=== PATIENT | female | born 1955 | race Asian ===

== ENCOUNTER 2024-01-20 16:39 | Emergency (ER) | payer MEDICARE, OTHER ==
[~2024-01-20] VITALS: Ht 149.9 cm; Wt 55.5 kg
[~2024-01-20 16:39] MED LIST: AMLO5TAB66 PO; GLIM4TAB36 PO; LETR2.5T7 PO; METF-446 PO; METO-408 PO; SIMV-261 PO; SITA100 PO
[2024-01-20 16:47] VITALS: TEMP 99.6
[2024-01-20] MEDS ORDERED: METO-416 PO (16:50)
[2024-01-20] MEDS ORDERED: ATOR40TA71 PO (16:50)
[2024-01-20] MEDS ORDERED: LORA10TA7 PO (16:50)
[2024-01-20] MEDS ORDERED: PIOG30TA70 PO (16:50)
[2024-01-20] MEDS ORDERED: INSU3INS10 SQ (16:50)
[2024-01-20] MEDS ORDERED: AMLO10TA55 PO (16:50)
[2024-01-20] MEDS ORDERED: CALC-26 PO (16:50)
[2024-01-20] MEDS ORDERED: ASPI-1522 PO (16:50)
[2024-01-20] MEDS ORDERED: LOSA100T59 PO (16:50)
[2024-01-20 17:31] LABS: BASOPHILS % (AUTO) 0.2 % (0.0-2.0); EOSINOPHILS % (AUTO) 0.2 % (1.0-6.0); HEMATOCRIT 38.4 % (36-46); HEMOGLOBIN 12.1 g/dL (12.0-16.0); LYMPHOCYTES # (AUTO) 0.6 K/uL (1.0-4.8); LYMPHOCYTES % (AUTO) 5.1 % (22.0-44.0); MEAN CORPUSCULAR HEMOGLOBIN 26.5 pg (26.0-34.0); MEAN CORPUSCULAR HGB CONC 31.5 G/dL (31.0-37.0); MEAN CORPUSCULAR VOLUME 84 fL (80-100); MONOCYTES # (AUTO) 1.1 K/uL (0.1-1.0); MONOCYTES % (AUTO) 9.4 % (2.0-9.0); NEUTROPHILS # (AUTO) 9.5 K/uL (1.8-7.7); NEUTROPHILS % (AUTO) 85.1 % (40.0-70.0); PLATELET COUNT (AUTO) 274 K/uL (150-450); RED BLOOD CELL COUNT(AUTO) 4.56 MIL/uL (4.00-5.20); RED CELL DISTRIBUTION WIDTH 14.5 % (11.5-14.5); WHITE BLOOD COUNT (AUTO) 11.2 K/uL (4.5-11.0)
[2024-01-20 17:45] LABS: CALCIUM, TOTAL 9.3 mg/dL (8.8-10.5); CREATININE 0.98 mg/dL (0.60-1.30); POTASSIUM 4.1 mmol/L (3.5-5.1)
[2024-01-20 17:51] LABS: ALBUMIN 3.6 g/dL (3.4-5.0); BILIRUBIN,DIRECT 0.2 mg/dL (0.00-0.20); BILIRUBIN,TOTAL 0.7 mg/dL (0.1-1.0); MAGNESIUM 1.5 mg/dL (1.80-2.40); TOTAL PROTEIN, SERUM 6.7 g/dL (6.4-8.2)
[2024-01-20 18:10] LABS: TROPONIN I-HIGH SENSITIVITY 15 ng/L (<51)
[2024-01-20] MEDS: MAGNESIUM SULFATE 2 GM/WATER 50 ML IV ONE (20:11)
[2024-01-20 20:31] VITALS: BP 118/57; PULSE 75; RESP 18; O2SAT 98
== END 2024-01-20 21:08 | disposition home or self-care (01) ==
LOC: EMS 16:39
DX: R53.81 Other malaise (principal); R53.83 Other fatigue; E83.42 Hypomagnesemia; R53.1 Weakness; E11.9 Type 2 diabetes mellitus without complications; I10 Essential (primary) hypertension; E78.5 Hyperlipidemia, unspecified; Z79.4 Long term (current) use of insulin; Z88.6 Allergy status to analgesic agent
CPT/HCPCS: 99284; 96365; 80048; 80076; 83735; 83880; 84484; 85025; 36415; 82962; 93005; J3475